=== PATIENT | female | born 1960 | race Caucasian/White ===

== ENCOUNTER 2017-01-07 19:54 | Emergency (ER) | payer BC ==
--- NOTE | 2017-01-07 20:26 | EDM.PDOC ---
ED HPI GENERAL MEDICAL PROBLEM - General Chief Complaint: Chest Pain Stated Complaint: GENERAL Time Seen by Provider: 01/07/17 20:10 Source of Information: Reports: Patient History Limitations: Reports: No Limitations - History of Present Illness INITIAL COMMENTS - FREE TEXT/NARRATIVE: Flex comes to [facility] ED by EMS following a 2 hr hx of vague retrosternal chest pain, nonradiating, rated a 5/10. Sxs occurred at work when patient reportedly didn't feel "right", and went to the employee lounge to check BP. BPs were elevated to 170's/100's with normal pulse. There was no sweats, lesley SOB, cough , palpitations, or GI upset. She tried no meds. EMS personnel administered 4 ASA prior to transfer. Upon arrival, no change in pain sxs, vSS. Mid-Sternal Chest Pain Score (Numeric/FACES): 4 - Related Data Allergies Allergy/AdvReac Type Severity Reaction Status Date / Time acetaminophen Allergy Itching Verified 01/07/17 20:24 Home Meds: Home Meds Ibuprofen 800 mg PO BID 12/11/13 [History] Past Medical History Musculoskeletal History: Reports: Other (See Below) (painful L foot) - Past Surgical History Other Musculoskeletal Surgeries/Procedures:: carpal tunnel bilateral hands Social & Family History - Tobacco Use Years of Tobacco use: 30 Packs/Tins Daily: 0.5 Second Hand Smoke Exposure: No - Alcohol Use Days Per Week of Alcohol Use: 1 Number of Drinks Per Day: 8 Total Drinks Per Week: 8 - Recreational Drug Use Recreational Drug Use: No - Living Situation & Occupation Living situation: Reports: Single Occupation: Employed ED ROS GENERAL - Review of Systems Review Of Systems: See Below Constitutional: Reports: No Symptoms HEENT: Reports: No Symptoms Respiratory: Reports: No Symptoms Cardiovascular: Reports: Chest Pain, Blood Pressure Problem Endocrine: Reports: No Symptoms GI/Abdominal: Reports: No Symptoms : Reports: No Symptoms Musculoskeletal: Reports: No Symptoms Skin: Reports: No Symptoms Neurological: Reports: No Symptoms Psychiatric: Reports: Anxiety Hematologic/Lymphatic: Reports: No Symptoms Immunologic: Reports: No Symptoms ED EXAM, GENERAL - Physical Exam Exam: See Below Exam Limited By: No Limitations General Appearance: Alert, WD/WN, No Apparent Distress, Anxious Eye Exam: Bilateral Eye: EOMI, Normal Inspection, PERRL Ears: Normal External Exam, Normal TMs Nose: Normal Inspection Throat/Mouth: Normal Inspection, Normal Oropharynx Head: Normocephalic Neck: Normal Inspection, Supple, Non-Tender, Full Range of Motion Respiratory/Chest: No Respiratory Distress, Lungs Clear, Normal Breath Sounds, No Accessory Muscle Use, Chest Non-Tender Cardiovascular: Regular Rate, Rhythm, No Edema, No JVD, No Murmur GI/Abdominal: Normal Bowel Sounds, Soft, Non-Tender, No Organomegaly, No Distention, No Mass Back Exam: Normal Inspection, Full Range of Motion Extremities: Normal Inspection, Normal Range of Motion, Non-Tender Neurological: Alert, Oriented, CN II-XII Intact, Normal Cognition, Normal Gait, No Motor/Sensory Deficits Psychiatric: Normal Affect, Anxious Skin Exam: Warm, Dry, Intact Lymphatic: No Adenopathy Course - Vital Signs Text/Narrative:: Upon admission to [facility] ED, a 12 lead ekg was obtained noting NSR, old changes suggestive of MO, present on ekg of 02/28/15. Medical assessment was noncontributory. A trial of GI cocktail was ineffective. Pains remained anterior , reduced to a 2-3/10, and are suspected to be musculoskeletal. She was discharged home in good condition. Last Recorded V/S: Last Vital Signs Temp 36.7 C 01/07/17 20:27 Pulse 80 01/07/17 20:27 Resp 12 01/07/17 20:27 BP 148/86 H 01/07/17 20:27 Pulse Ox 98 01/07/17 20:27 - Orders/Labs/Meds Orders: Active Orders 24 hr Category Date Time Status EKG Documentation Completion [RC] ASDIRECTED Care 01/07/17 20:12 Active Chest 1V Frontal [CR] Stat Exams 01/07/17 20:20 Taken EKG 12 Lead [EK] Routine Ther 01/07/17 20:12 Ordered Labs: Laboratory Tests 01/07/17 01/07/17 01/07/17 Range/Units 20:30 20:30 20:30 WBC 5.9 (4.5-12.0) X10-3/uL RBC 4.69 (3.23-5.20) x10(6)uL Hgb 13.7 (11.5-15.5) g/dL Hct 40.9 (30.0-51.3) % MCV 87.1 (80-96) fL MCH 29.1 (27.7-33.6) pg MCHC 33.4 (32.2-35.4) g/dL RDW 13.9 (11.5-15.5) % Plt Count 243 (125-369) X10(3)uL MPV 7.8 (7.4-10.4) fL Neut % (Auto) 76.4 (46-82) % Lymph % (Auto) 17.9 (13-37) % [place] % (Auto) 4.4 (4-12) % Eos % (Auto) 1 (1.0-5.0) % Baso % (Auto) 1 (0-2) % Neut # (Auto) 4.5 (1.6-8.3) # Lymph # (Auto) 1.1 (0.6-5.0) # [place] # (Auto) 0.3 (0.0-1.3) # Eos # (Auto) 0.0 (0.0-0.8) # Baso # (Auto) 0.0 (0.0-0.2) # Sodium 142 (135-145) mmol/L Potassium 3.7 (3.5-5.3) mmol/L Chloride 108 (100-110) mmol/L Carbon Dioxide 27 (23-29) mmol/L BUN 12 (5-20) mg/dL Creatinine 0.7 (0.6-1.3) mg/dL Est Cr Clr Drug Dosing 72.66 mL/min Estimated GFR (MDRD) > 60 (>60) BUN/Creatinine Ratio 17.1 (9-20) Glucose 109 (80-116) mg/dL Calcium 9.3 (8.6-10.2) mg/dL Total Bilirubin 0.6 (0.1-1.3) mg/dL AST 27 (5-27) IU/L ALT 37 H D (14-26) IU/L Alkaline Phosphatase 53 L (56-112) IU/L Troponin I < 0.01 L (0.02-0.06) NG/ML Total Protein 7.7 (6.0-8.0) g/dL Albumin 4.3 (3.5-5.2) g/dL Globulin 3.4 g/dL Albumin/Globulin Ratio 1.3 Meds: Medications Discontinued Medications Generic Name Dose Route Start Last Admin Trade Name Yumiko PRN Reason Stop Dose Admin Al Hydroxide/Mg Hydroxide 15 0 ml 01/07/17 21:15 01/07/17 21:23 ml/ Lidocaine HCl 15 ml PO 01/07/17 21:16 15 ml ONETIME ONE Administration Departure - Departure Time of Disposition: 21:46 Disposition: Home, Self-Care 01 Condition: Good Clinical Impression: Atypical chest pain Forms: ED Department Discharge - Problem List & Annotations (1) Atypical chest pain SNOMED Code(s): 103619345 Code(s): R07.89 - OTHER CHEST PAIN Status: Acute Current Visit: Yes Annotation/Comment:: Atypical chest pain, likely musculoskeletal. Follow up with PCP. She may consider NSAIDs for sxs relief. - Problem List Review Problem List Initiated/Reviewed/Updated: Yes - My Orders Last 24 Hours: My Active Orders 01/07/17 20:12 EKG Documentation Completion [RC] ASDIRECTED EKG 12 Lead [EK] Routine 01/07/17 20:20 Chest 1V Frontal [CR] Stat - Assessment/Plan Last 24 Hours: My Active Orders 01/07/17 20:12 EKG Documentation Completion [RC] ASDIRECTED EKG 12 Lead [EK] Routine 01/07/17 20:20 Chest 1V Frontal [CR] Stat Plan: Follow up with PCP.
[2017-01-07 20:32] VITALS: BP 148/86
[2017-01-07] MEDS ORDERED: Alum Hydroxide/Mag Hydroxide 15 ML, Lidocaine 2% 15 ML PO ONE ×2 (21:15)
--- NOTE | 2017-01-08 14:53 | CR ---
INDICATION: Chest pain. CHEST: A portable AP upright view of the chest was obtained 01/07/2017. No comparisons were available. Evidence of exogenous obesity is noted. The heart is prominent in size, but not grossly enlarged. There is question of left atrial enlargement with a double shadow overlying the right heart. The aorta is tortuous with minimal calcification in the arch. Overlying EKG leads are noted. An active infiltrate or effusion was not identified. IMPRESSION: 1. Probable ASHD with heart at the upper limits of normal in size or minimally enlarged. Specific chamber enlargement suggested left atrial enlargement. 2. No definite acute process. 3. Exogenous obesity. MTDD
== END 2017-01-07 21:55 | disposition home or self-care (01) ==
LOC: FB.ED 19:54
DX: R07.89 Other chest pain (principal); I10 Essential (primary) hypertension
CPT/HCPCS: 36415; 71010; 80053; 84484; 85025; 93005; 99285; A9270

== ENCOUNTER 2020-10-25 07:17 | Emergency (ER) | payer BC ==
[2020-10-25] MEDS ORDERED: Sodium Chloride 0.9% 10 ML Syringe FLUSH PRN (08:10)
[2020-10-25] MEDS ORDERED: Sodium Chloride 0.9% 1,000 ML IV SCH (08:15)
[2020-10-25] MEDS ORDERED: Ondansetron 4 MG/2 ML SDV IVPUSH STA (08:30)
[2020-10-25] MEDS ORDERED: Ketorolac 30 MG/ML SDV IVPUSH STA (08:30)
[2020-10-25] MEDS ORDERED: Iopamidol 755 Mg/ML 100 ML Bottle IV ONE (09:35)
--- NOTE | 2020-10-25 09:39 | EDM.PDOC ---
ED HPI GENERAL MEDICAL PROBLEM - General Chief Complaint: Flank Pain Stated Complaint: PAIN IN LOWER RIGHT ABDOMIN/BACK Time Seen by Provider: 10/25/20 07:35 Source of Information: Reports: Patient History Limitations: Reports: No Limitations - History of Present Illness INITIAL COMMENTS - FREE TEXT/NARRATIVE: Patient presented to the ED because of Rt flank pain which started yesterday and today a R sided abd pain. the pain is sharp,19/10 with associated nausea but no vomiting. there is no diarrhea or constipation. She however has dysuria x 1 day but no fever or chills. R flank radiating into R lower abdomen Pain Score (Numeric/FACES): 9 - Related Data Allergies Allergy/AdvReac Type Severity Reaction Status Date / Time acetaminophen Allergy Itching Verified 10/25/20 07:37 meclizine Allergy Dizziness Verified 10/25/20 07:37 Home Meds: Home Meds Ibuprofen 800 mg PO BID 12/11/13 [History] DULoxetine [Cymbalta] 60 mg PO DAILY 10/25/20 [History] Gabapentin [Neurontin] 600 mg PO BID 10/25/20 [History] Metoprolol Succinate [Toprol XL 100mg] 100 mg DAILY 10/25/20 [History] Sulfamethoxazole/Trimethoprim [Bactrim Ds Tablet] 1 each PO BID #10 tablet 10/25/20 [Rx] Past Medical History Cardiovascular History: Reports: CAD, Hypertension Gastrointestinal History: Reports: Cholelithiasis Musculoskeletal History: Reports: Fracture, Fibromyalgia Other Musculoskeletal History: R ft fx Psychiatric History: Reports: Anxiety, Panic Attack Endocrine/Metabolic History: Reports: Obesity/BMI 30+ - Infectious Disease History Infectious Disease History: Reports: Human Papilloma Virus (HPV) - Past Surgical History HEENT Surgical History: Reports: Oral Surgery Musculoskeletal Surgical History: Reports: Carpal Tunnel, Other (See Below) Other Musculoskeletal Surgeries/Procedures:: carpal tunnel bilateral hands Social & Family History - Family History Family Medical History: No Pertinent Family History - Tobacco Use Tobacco Use Status *Q: Current Every Day Tobacco User Years of Tobacco use: 40 Packs/Tins Daily: 0.5 - Caffeine Use Caffeine Use: Reports: Coffee, Soda - Alcohol Use Days Per Week of Alcohol Use: 2 Number of Drinks Per Day: 5 Total Drinks Per Week: 10 - Recreational Drug Use Recreational Drug Use: No - Living Situation & Occupation Living situation: Reports: Single Occupation: Employed ED ROS GENERAL - Review of Systems Review Of Systems: See Below Constitutional: Reports: No Symptoms HEENT: Reports: No Symptoms Respiratory: Reports: No Symptoms Cardiovascular: Reports: No Symptoms Endocrine: Reports: No Symptoms GI/Abdominal: Reports: Abdominal Pain, Nausea : Reports: Flank Pain Musculoskeletal: Reports: Back Pain Skin: Reports: No Symptoms Neurological: Reports: No Symptoms Psychiatric: Reports: No Symptoms ED EXAM, GI/ABD - Physical Exam Exam: See Below Exam Limited By: No Limitations General Appearance: Alert, No Apparent Distress Ears: Normal External Exam, Normal Canal Nose: Normal Inspection, Normal Mucosa, No Blood Throat/Mouth: Normal Inspection Head: Atraumatic, Normocephalic Neck: Normal Inspection, Supple, Non-Tender, Full Range of Motion Respiratory/Chest: No Respiratory Distress, Lungs Clear, Normal Breath Sounds, No Accessory Muscle Use, Chest Non-Tender Cardiovascular: Normal Peripheral Pulses, Regular Rate, Rhythm, No Edema, No Gallop, No JVD, No Murmur, No Rub GI/Abdominal Exam: Normal Bowel Sounds, Soft, Other (RCVAT) Back Exam: Normal Inspection, Full Range of Motion Extremities: Normal Inspection, Normal Range of Motion Neurological: Alert, Oriented, CN II-XII Intact, Normal Cognition Course - Vital Signs Text/Narrative:: Lab/CT result was discussed with patient NS 1 L bolus Zofran 4 mg IV x1 Toradol 30 mg IV x1 Klor con 20 meq, 2 PO x1 Last Recorded V/S: Last Vital Signs Temp 36.8 C 10/25/20 07:29 Pulse 79 10/25/20 09:30 Resp 18 10/25/20 09:30 BP 170/89 H 10/25/20 09:30 Pulse Ox 97 10/25/20 09:30 - Orders/Labs/Meds Orders: Active Orders 24 hr Category Date Time Status CULTURE URINE [RM] Stat Lab 10/25/20 07:45 Received Sodium Chloride 0.9% [Normal Saline] 1,000 ml Med 10/25/20 08:15 Active IV ASDIRECTED Sodium Chloride 0.9% [Saline Flush] Med 10/25/20 08:10 Active 10 ml FLUSH ASDIRECTED PRN Saline Lock Insert [OM.PC] Routine Oth 10/25/20 08:10 Ordered Medication Orders Sodium Chloride (Normal Saline) 1,000 mls @ 999 mls/hr IV ASDIRECTED LYRIC Last Admin: 10/25/20 08:27 Dose: 999 mls/hr Documented by: AL Sodium Chloride (Sodium Chloride 0.9% 10 Ml Syringe) 10 ml FLUSH ASDIRECTED PRN PRN Reason: Keep Vein Open Labs: Laboratory Tests 10/25/20 10/25/20 10/25/20 Range/Units 07:45 07:45 07:45 WBC 6.8 (3.0-10.3) x10-3/uL RBC 4.55 (3.60-5.20) x10(6)uL Hgb 13.1 (11.4-15.5) g/dL Hct 39.9 (34.2-48.2) % MCV 87.7 (76.7-100.5) fL MCH 28.7 (23.9-33.9) pg MCHC 32.7 (31.9-34.8) g/dL RDW 13.0 (12.3-16.5) % Plt Count 245 (151-488) x10(3)uL MPV 8.2 (7.1-12.4) fL Neut % (Auto) 56.2 (30.8-76.2) % Lymph % (Auto) 29.6 (18.4-52.1) % [place] % (Auto) 10.1 (4.4-15.7) % Eos % (Auto) 3.7 (0.6-8.1) % Baso % (Auto) 0.4 (0.2-1.5) % Neut # (Auto) 3.8 (1.5-6.3) x10-3/uL Lymph # (Auto) 2.0 (1.0-4.4) x10-3/uL [place] # (Auto) 0.7 (0.3-1.0) x10-3/uL Eos # (Auto) 0.3 (0.0-0.8) x10-3/uL Baso # (Auto) 0.0 (0.0-0.1) x10-3/uL Sodium 145 (135-145) mmol/L Potassium 3.4 L (3.5-5.3) mmol/L Chloride 106 (100-110) mmol/L Carbon Dioxide 26 (21-32) mmol/L BUN 15 (7-18) mg/dL Creatinine 0.9 (0.55-1.02) mg/dL Est Cr Clr Drug Dosing 51.41 mL/min Estimated GFR (MDRD) > 60 (>60) BUN/Creatinine Ratio 16.7 (9-20) Glucose 104 (80-116) mg/dL Calcium 9.1 (8.6-10.2) mg/dL Total Bilirubin 0.5 (0.1-1.3) mg/dL AST 25 (5-25) IU/L ALT 36 (12-36) U/L Alkaline Phosphatase 77 (56-112) IU/L Total Protein 7.1 (6.0-8.0) g/dL Albumin 3.4 L (3.5-5.2) g/dL Globulin 3.7 g/dL Albumin/Globulin Ratio 0.9 Amylase 25 (25-115) U/L Lipase (73-393) U/L Urine Color Yellow (YELLOW) Urine Appearance Slightly cloudy (CLEAR) Urine pH 5.0 (5.0-6.5) Ur Specific [place] 1.015 (1.010-1.025) Urine Protein Negative (NEGATIVE) mg/dL Urine Glucose (UA) Normal (NORMAL) mg/dL Urine Ketones Negative (NEGATIVE) mg/dL Urine Occult Blood Negative (NEGATIVE) Urine Nitrite Negative (NEGATIVE) Urine Bilirubin Negative (NEGATIVE) Urine Urobilinogen Normal (NEGATIVE) mg/dL Ur Leukocyte Esterase Moderate H (NEGATIVE) Urine RBC 0-5 (0-5) Urine WBC 20-30 H (0-5) Ur Squamous Epith Cells Occasional (NS,R,O) Urine Bacteria Few H (NS) 10/25/20 Range/Units 07:45 WBC (3.0-10.3) x10-3/uL RBC (3.60-5.20) x10(6)uL Hgb (11.4-15.5) g/dL Hct (34.2-48.2) % MCV (76.7-100.5) fL MCH (23.9-33.9) pg MCHC (31.9-34.8) g/dL RDW (12.3-16.5) % Plt Count (151-488) x10(3)uL MPV (7.1-12.4) fL Neut % (Auto) (30.8-76.2) % Lymph % (Auto) (18.4-52.1) % [place] % (Auto) (4.4-15.7) % Eos % (Auto) (0.6-8.1) % Baso % (Auto) (0.2-1.5) % Neut # (Auto) (1.5-6.3) x10-3/uL Lymph # (Auto) (1.0-4.4) x10-3/uL [place] # (Auto) (0.3-1.0) x10-3/uL Eos # (Auto) (0.0-0.8) x10-3/uL Baso # (Auto) (0.0-0.1) x10-3/uL Sodium (135-145) mmol/L Potassium (3.5-5.3) mmol/L Chloride (100-110) mmol/L Carbon Dioxide (21-32) mmol/L BUN (7-18) mg/dL Creatinine (0.55-1.02) mg/dL Est Cr Clr Drug Dosing mL/min Estimated GFR (MDRD) (>60) BUN/Creatinine Ratio (9-20) Glucose (80-116) mg/dL Calcium (8.6-10.2) mg/dL Total Bilirubin (0.1-1.3) mg/dL AST (5-25) IU/L ALT (12-36) U/L Alkaline Phosphatase (56-112) IU/L Total Protein (6.0-8.0) g/dL Albumin (3.5-5.2) g/dL Globulin g/dL Albumin/Globulin Ratio Amylase (25-115) U/L Lipase 162 (73-393) U/L Urine Color (YELLOW) Urine Appearance (CLEAR) Urine pH (5.0-6.5) Ur Specific [place] (1.010-1.025) Urine Protein (NEGATIVE) mg/dL Urine Glucose (UA) (NORMAL) mg/dL Urine Ketones (NEGATIVE) mg/dL Urine Occult Blood (NEGATIVE) Urine Nitrite (NEGATIVE) Urine Bilirubin (NEGATIVE) Urine Urobilinogen (NEGATIVE) mg/dL Ur Leukocyte Esterase (NEGATIVE) Urine RBC (0-5) Urine WBC (0-5) Ur Squamous Epith Cells (NS,R,O) Urine Bacteria (NS) Meds: Medications Generic Name Dose Route Start Last Admin Trade Name Freq PRN Reason Stop Dose Admin Sodium Chloride 1,000 mls @ 999 mls/hr 10/25/20 08:15 10/25/20 08:27 Normal Saline IV 999 mls/hr ASDIRECTED LYRIC Administration Sodium Chloride 10 ml 10/25/20 08:10 Sodium Chloride 0.9% 10 Ml Syringe FLUSH ASDIRECTED PRN Keep Vein Open Discontinued Medications Generic Name Dose Route Start Last Admin Trade Name Freq PRN Reason Stop Dose Admin Iopamidol 100 ml 10/25/20 09:35 10/25/20 09:45 Iopamidol 755 Mg/Ml 100 Ml Bottle IV 10/25/20 09:36 100 ml . DIRECTED ONE Administration Ketorolac Tromethamine 30 mg 10/25/20 08:30 10/25/20 08:35 Ketorolac 30 Mg/Ml Sdv IVPUSH 10/25/20 08:31 30 mg NOW STA Administration Ondansetron HCl 4 mg 10/25/20 08:30 10/25/20 08:35 Ondansetron 4 Mg/2 Ml Sdv IVPUSH 10/25/20 08:31 4 mg NOW STA Administration Departure - Departure Time of Disposition: 10:55 Disposition: Home, Self-Care 01 Condition: Good Clinical Impression: UTI (urinary tract infection), Hypokalemia - Discharge Information Prescriptions: Sulfamethoxazole/Trimethoprim [Bactrim Ds Tablet] 1 each PO BID #10 tablet Instructions: Urinary Tract Infection, Adult, [id number], Hypokalemia Referrals: Rigo Dejesus MD [Primary Care Provider] - Forms: ED Department Discharge Additional Instructions: Please read discharge instructions on hypokalemia(low potassium) and UTI Increase oral fluids at least 2 liters a day Bactrim DS twice daily for 5 days Return to the ED right away if you develop fever,nausea/vomiting, increase pain on your right lower abdomen just above the groin Sepsis Event Note (ED) - Evaluation Sepsis Screening Result: No Definite Risk - Focused Exam Vital Signs: Vital Signs Temp Pulse Resp BP Pulse Ox 10/25/20 09:30 79 18 170/89 H 97 10/25/20 08:25 74 18 162/89 H 96 10/25/20 07:29 36.8 C 78 18 184/104 H 100 - My Orders Last 24 Hours: My Active Orders 10/25/20 07:45 CULTURE URINE [RM] Stat 10/25/20 08:10 Sodium Chloride 0.9% [Saline Flush] 10 ml FLUSH ASDIRECTED PRN Saline Lock Insert [OM.PC] Routine 10/25/20 08:15 Sodium Chloride 0.9% [Normal Saline] 1,000 ml IV ASDIRECTED - Assessment/Plan Last 24 Hours: My Active Orders 10/25/20 07:45 CULTURE URINE [RM] Stat 10/25/20 08:10 Sodium Chloride 0.9% [Saline Flush] 10 ml FLUSH ASDIRECTED PRN Saline Lock Insert [OM.PC] Routine 10/25/20 08:15 Sodium Chloride 0.9% [Normal Saline] 1,000 ml IV ASDIRECTED
--- NOTE | 2020-10-25 10:47 | CT ---
INDICATION: Right flank and right lower quadrant pain. CT ABDOMEN AND PELVIS WITH CONTRAST: Spiral 3.75 mm axial sections were obtained through the abdomen and pelvis with 100 mL Isovue-370 at 2 mL per second with sagittal and coronal reconstructions 10/25/20 - no comparison. Total exam DLP was 1019.57 mGy-cm. There are some mild emphysematous appearing changes in the lungs with no definite active infiltrate or effusion identified. The heart did not appear significantly enlarged, but was at the upper limits of normal in size. The appendix is slightly enlarged proximally with no significant peritonitis, abscess formation, or free air. The possibility of a minimal or early appendicitis would be a consideration. The appendix was visualized on axial images 55 to 73 and coronal images 39 through 49. No evidence of bowel obstruction was identified. The common bile duct appeared to be somewhat prominent for age measuring approximately 6.4 mm, no specific etiology was identified. No definite choledocholithiasis or pancreatic mass was identified with the pancreas appearing essentially normal. The gallbladder showed no evidence of calculi. The liver had a normal appearance. The spleen had a normal appearance. The adrenal glands were unremarkable. The kidneys appeared normal except to note a tiny low-density lesion likely representing a simple cyst in the posterior upper pole right kidney cortex. No obstructive uropathy was identified. No definite renal calcinosis is seen. No retroperitoneal mass was demonstrated. The urinary bladder appeared mildly distended, but otherwise unremarkable. A moderate dextroconvex scoliosis of the upper middle lumbar spine is noted with hypertrophic degenerative changes and diffuse lumbosacral degenerative disk disease present with vacuum disk phenomena at all levels, as well as several lower thoracic levels where hypertrophic changes are also noted off vertebral bodies prominent anterolaterally on the right in the lower thoracic spine. IMPRESSION: 1. Mildly prominent proximal portion of the appendix without significant fat stranding, abscess formation, or free air. Findings may represent very early or mild appendicitis. 2. Tiny cyst right kidney. 3. The heart appears to be at the upper limits of normal in size. 4. Degenerative changes, disk disease, scoliosis lumbosacral spine and hypertrophic degenerative changes and disk disease lower thoracic spine. 5. Somewhat prominent common bile duct of questionable significance. MRI - MRCP may be helpful for further evaluation of this 6.9 mm common bile duct in the head of the pancreas area. It does abruptly end in that area. Correlate clinically and with lab values as the necessity for MRCP. Report was called to Dr. Vincent at 1015 hours, 10/25/20. [facility]
[2020-10-25] MEDS ORDERED: Potassium Chloride 20 MEQ Tab.ER PO STA (10:58)
[2020-10-25 11:47] VITALS: BP 180/95; PULSE 75
== END 2020-10-25 11:20 | disposition home or self-care (01) ==
LOC: FB.ED 07:17
DX: N39.0 Urinary tract infection, site not specified (principal); E87.6 Hypokalemia; E66.9 Obesity, unspecified; I25.10 Atherosclerotic heart disease of native coronary artery without angina pectoris; I10 Essential (primary) hypertension; Z72.0 Tobacco use; Z68.34 Body mass index [BMI] 34.0-34.9, adult; Z88.5 Allergy status to narcotic agent; Z88.8 Allergy status to other drugs, medicaments and biological substances
CPT/HCPCS: 36415; 74177; 80053; 81001; 82150; 83690; 85025; 87086; 96374; 96375; 99284-25; A9270-GY; J1885; J2405; J7030; Q9967

== ENCOUNTER 2022-07-23 07:46 | Day surgery (SDC) | payer BC ==
[2022-07-23] MEDS ORDERED: Propofol 200 MG/20 ML SDV IV ONE (07:47)
[2022-07-23] MEDS ORDERED: Glycopyrrolate 0.2 MG/ML 5 ML MDV IV ONE (07:47)
[2022-07-23] MEDS ORDERED: Sodium Chloride 0.9% 10 ML Syringe FLUSH PRN (08:00)
[2022-07-23] MEDS ORDERED: Lactated Ringers 1,000 ML IV SCH (08:00)
[2022-07-23 08:24] VITALS: PULSE 85
[2022-07-23] MEDS ORDERED: Simethicone Drops 40 MG/0.6 ML 30 ML Bottle PO ONE (09:42)
[2022-07-23 10:48] VITALS: BP 144/90
== END 2022-07-23 10:38 | disposition home or self-care (01) ==
LOC: FB.SDS 07:46
PROVIDERS: ATTEND Surgery
DX: Z12.11 Encounter for screening for malignant neoplasm of colon (principal); I10 Essential (primary) hypertension; F17.220 Nicotine dependence, chewing tobacco, uncomplicated; G47.30 Sleep apnea, unspecified; Z79.899 Other long term (current) drug therapy; Z88.6 Allergy status to analgesic agent; Z88.2 Allergy status to sulfonamides; Z98.890 Other specified postprocedural states; Z90.710 Acquired absence of both cervix and uterus
CPT/HCPCS: 00812-QZ; A9270-GY; J2704; J3490; J7120